=== PATIENT | male | born 1950 | race Caucasian/White ===

== ENCOUNTER 2016-08-25 09:34 | Emergency (ER) | payer MEDICARE ==
[2016-08-25] MEDS ORDERED: NORMAL SALINE 1000 ML 1,000 ML IV ONE (10:00)
[2016-08-25 10:02] LABS: ABSOLUTE BASOPHILS # (AUTO) 0.1 10^3/uL (0.0-0.2); ABSOLUTE EOSINOPHILS # (AUTO) 0.1 10^3/uL (0.0-0.6); ABSOLUTE LYMPHOCYTES (AUTO) 1.4 10^3/uL (0.5-4.7); ABSOLUTE MONOCYTES (AUTO) 0.2 10^3/uL (0.1-1.4); ABSOLUTE NEUT (AUTO) 3.6 10^3/uL (1.7-8.2); BASOPHILS % (AUTO) 1.1 % (0-2); EOSINOPHILS % (AUTO) 1.9 % (0-6); HEMATOCRIT 44.1 % (37.9-51.0); HEMOGLOBIN 14.7 g/dL (13.5-17.0); MEAN CORPUSCULAR HGB CONC 33.3 g/dL (32.0-36.0); MEAN CORPUSCULAR VOLUME 93 fl (80-97); MONOCYTES % (AUTO) 4.3 % (3-13); RED BLOOD COUNT 4.74 10^6/uL (4.35-5.55); RED CELL DISTRIBUTION WIDTH 13.2 % (11.5-14.0); SEGMENTED NEUTROPHILS % (AUTO) 66.7 % (42-78); WHITE BLOOD COUNT 5.3 10^3/uL (4.0-10.5)
[2016-08-25 10:16] LABS: ALANINE AMINOTRANSFERASE 28 U/L (21-72); ALBUMIN 4.5 g/dL (3.5-5.0); ALKALINE PHOSPHATASE 58 U/L (38-126); ANION GAP 12 (5-19); ASPARTATE AMINO TRANSFERASE 23 U/L (17-59); BILIRUBIN,DIRECT 0.3 mg/dL (0.0-0.4); BILIRUBIN,TOTAL 0.7 mg/dL (0.2-1.3); BLOOD UREA NITROGEN 18 mg/dL (7-20); CALCIUM 9.4 mg/dL (8.4-10.2); CARBON DIOXIDE 25 mmol/L (22-30); CHLORIDE 104 mmol/L (98-107); CREATINE KINASE 121 U/L (55-170); CREATININE RESULT 1.14 mg/dL (0.52-1.25); GLUCOSE 105 mg/dL (75-110); POTASSIUM 4.2 mmol/L (3.6-5.0); SODIUM 140.5 mmol/L (137-145); TOTAL PROTEIN 7.5 g/dL (6.3-8.2)
--- NOTE | 2016-08-25 10:16 | ER Document Report ---
ED Syncope and Near Syncope - General Chief Complaint: Syncope Stated Complaint: SYNCOPE, FALL/ CHEST WALL PAIN Time Seen by Provider: 08/25/16 09:55 Mode of Arrival: Medic Information source: Patient, Relative, Emergency Med Personnel TRAVEL OUTSIDE OF THE [place] IN LAST 30 DAYS: No - HPI Patient complains to provider of: Fainting Episode witnessed (by whom): Yes - [employer] Single episoded occurred: 0800 Symptoms prior to episode: Other - NUMBNESS, GENERALIZED Position/Activity at time of episode: Standing Quality of pain: No pain Context: Collapsed Duration of LOC (min): 0.3 Injury location: Chest - R. LAT. Current symptoms: None/feels back to normal Similar symptoms previously: Yes - 1 WEEK AGO Recently seen / treated by doctor: No - Related Data Allergies/Adverse Reactions: sulfamethoxazole [From Septra] Allergy (Severe, Verified 06/30/10 16:14) trimethoprim [From Septra] Allergy (Severe, Verified 06/30/10 16:14) Past Medical History - General Information source: Patient - Social History Smoking Status: Current Every Day Smoker Cigarette use (# per day): Yes Chew tobacco use (# tins/day): No Frequency of alcohol use: Occasional Drug Abuse: None Lives with: Family Family History: Reviewed & Not Pertinent Patient has suicidal ideation: No Patient has homicidal ideation: No - Past Medical History Cardiac Medical History: Reports: Hx Hypertension - FORMERLY, ON NO MEDS NOW Pulmonary Medical History: Reports: None EENT Medical History: Reports: None Neurological Medical History: Reports: Other - NEG. PARKINSON'S DIS.. Denies: Hx Cerebrovascular Accident, Hx Seizures Endocrine Medical History: Reports: None Renal/ Medical History: Reports: None Malignancy Medical History: Reports None GI Medical History: Reports: None Musculoskeltal Medical History: Reports None Psychiatric Medical History: Reports: Hx Dementia Review of Systems - Review of Systems Constitutional: Weakness EENT: No symptoms reported Cardiovascular: Syncope, Lightheaded. denies: Chest pain, Palpitations, Dyspnea Respiratory: See HPI Gastrointestinal: No symptoms reported Genitourinary: No symptoms reported Musculoskeletal: No symptoms reported Skin: No symptoms reported Neurological/Psychological: See HPI Physical Exam - Vital signs Vitals: Resp 10 L 08/25/16 09:40 - General General appearance: Appears well, Alert In distress: None - HEENT Head: Normocephalic Eyes: Normal Conjunctiva: Normal Ears: Normal Nasal: Normal Mouth/Lips: Normal Mucous membranes: Normal Pharynx: Normal Neck: Normal - Respiratory Respiratory status: No respiratory distress Chest status: Tender - R. LATERAL Breath sounds: Normal Chest palpation: Normal - Cardiovascular Rhythm: Regular Heart sounds: Normal auscultation Murmur: No - Abdominal Inspection: Normal Distension: No distension - Extremities General upper extremity: Normal inspection General lower extremity: Normal inspection - Neurological Neuro grossly intact: Yes Cognition: Normal Orientation: AAOx4 - Psychological Associated symptoms: Normal affect, Normal mood - Skin Skin Temperature: Warm Skin Moisture: Dry Skin Color: Normal Skin Turgor: Elastic Course - Vital Signs Vital signs: Temp Pulse Resp BP Pulse Ox 97.9 F 61 18 121/68 95 08/25/16 10:01 08/25/16 12:10 08/25/16 10:01 08/25/16 12:10 08/25/16 10:01 - Laboratory Result Diagrams: 08/25/16 09:50 08/25/16 09:50 Laboratory results interpreted by me: 08/25/16 08/25/16 08/25/16 09:50 09:50 10:00 Plt Count 131 L Urine Ketones TRACE H Salicylates < 1.0 L - Diagnostic Test Radiology reviewed: Image reviewed, Reports reviewed - EKG Interpretation by Me EKG shows normal: Sinus rhythm, [place], Intervals, QRS Complexes. abnormal: ST-T Waves - BORDERLINE T ABNLS. Rate: Normal Rhythm: NSR Discharge - Discharge Clinical Impression: Syncope and collapse, Rib injury Condition: Stable Disposition: HOME, SELF-CARE Instructions: Syncopal Episode ([facility]), Rib Injuries and Fractures ([facility]), Oral Narcotic Medication ([facility]) Additional Instructions: REST, DRINK PLENTY OF FLUIDS. YOU MAY TAKE NORCO FOR PAIN IF NEEDED, OR IBUPROFEN OR NAPROXEN FOR LESS SEVERE PAIN. FOLLOW UP WITH YOUR PRIMARY CARE PROVIDER EARLY NEXT WEEK. RETURN TO E.R. IF PROBLEMS, ANY TIME. Prescriptions: Hydrocodone/Acetaminophen [[place] 5-325 mg Tablet] 1 tab PO Q4HP PRN #30 tablet PRN Reason: For Pain
[2016-08-25 10:20] LABS: ALCOHOL < 10 mg/dL (NONE DETECTED)
[2016-08-25 10:27] LABS: CREATINE KINASE MB 1.04 ng/mL (<4.55)
[2016-08-25 10:33] LABS: TROPONIN I < 0.012 ng/mL
[2016-08-25 10:41] LABS: APPEARANCE,URINE SLIGHTLY-CLOUDY; BILIRUBIN,URINE NEGATIVE (NEGATIVE); GLUCOSE, URINE NEGATIVE (NEGATIVE); KETONES,URINE TRACE mg/dL (NEGATIVE); LEUKOCYTE ESTERASE,URINE NEGATIVE (NEGATIVE); NITRITE,URINE NEGATIVE (NEGATIVE); PROTEIN,URINE NEGATIVE (NEGATIVE); URINE SPECIFIC GRAVITY 1.018; UROBILINOGEN,URINE NEGATIVE mg/dL (<2.0)
--- NOTE | 2016-08-25 10:45 | EKG REPORT ---
SEVERITY:- BORDERLINE ECG - SINUS RHYTHM BORDERLINE T WAVE ABNORMALITIES : Confirmed by: Nuria Garcia MD 25-Aug-2016 10:45:16
--- NOTE | 2016-08-25 10:48 | RADIOLOGY REPORT (SQ) ---
EXAM DESCRIPTION: RIBS RIGHT W/PA CHEST COMPLETED DATE/TIME: 08/25/2016 10:37 am REASON FOR STUDY: FALL, TENDER R. LAT. CHEST COMPARISON: None. TECHNIQUE: Frontal view of the chest and additional views of the right ribs acquired. NUMBER OF VIEWS: Three views LIMITATIONS: None. FINDINGS: FRONTAL CXR: No pneumothorax. No pleural effusion. No atelectasis or infiltrates. RIBS: No displaced rib fractures. No lytic or blastic bony lesions. OTHER: No other significant finding. IMPRESSION: NO PNEUMOTHORAX. NO DISPLACED RIB FRACTURES. COMMENT: SITE OF TRAUMA/COMPLAINT MARKED/STAMP COMPLETED: Yes TECHNICAL DOCUMENTATION: JOB ID: [id number] [employer]- All Rights Reserved
[2016-08-25 10:52] LABS: URINE BARBITURATES SCREEN NEGATIVE; URINE METHADONE SCREEN NEGATIVE; URINE OPIATES LOW NEGATIVE; URINE PHENCYCLIDINE SCREEN NEGATIVE
[2016-08-25] MEDS ORDERED: HYDROMORPHONE HCL INJ/PF 2 MG/ML AMPULE IM ONE (12:17)
[2016-08-25] MEDS ORDERED: ONDANSETRON 4 MG TAB.RAPDIS PO ONE (12:17)
[2016-08-25 14:10] VITALS: BP 126/67
== END 2016-08-25 13:22 | disposition home or self-care (01) ==
LOC: ER 09:34
DX: R55 Syncope and collapse (principal); S29.9XXA Unspecified injury of thorax, initial encounter; W19.XXXA Unspecified fall, initial encounter; Y93.89 Activity, other specified; F17.210 Nicotine dependence, cigarettes, uncomplicated; Z88.1 Allergy status to other antibiotic agents
CPT/HCPCS: 93005; 99284; 96372; 96360; 36415; 82553; 80307 ×3; 82550; 85025; 80053; 81001; 84484; 71101; 93010; A9270; J1170; J7030; S0119

== ENCOUNTER 2018-12-25 13:29 | Emergency (ER) | payer MEDICARE ==
[2018-12-25] MEDS ORDERED: ACETAMINOPHEN 325 MG TABLET PO ONE (14:01)
[2018-12-25] MEDS ORDERED: IBUPROFEN 600 MG TABLET PO ONE (14:01)
--- NOTE | 2018-12-25 14:03 | ER Document Report ---
HPI - HPI Pain Level: 5 Context: Patient is a 68-year-old male presents to the emergency department with a chief complaint of left knee pain. Yesterday he was walking up steps and his left knee gave out on him. He denies hitting his knee or falling to the ground. Since then, he states that he has a limp and every time he puts pressure on it hurts. He has not taken any medications for the pain. Patient has a history of orthoscopic surgery on that knee. - CONSTITUTIONAL Constitutional: DENIES: Fever, Chills - EENT EENT: DENIES: Sore Throat - NEURO Neurology: DENIES: Headache, Weakness - CARDIOVASCULAR Cardiovascular: DENIES: Chest pain - RESPIRATORY Respiratory: DENIES: Trouble Breathing - GASTROINTESTINAL Gastrointestinal: DENIES: Nausea, Patient vomiting - REPRODUCTIVE Reproductive: DENIES: : - MUSCULOSKELETAL Musculoskeletal: REPORTS: Extremity pain - left knee, Swelling - left knee. DENIES: Back Pain - DERM Skin Color: Normal Skin Problems: None <LAURELCHRISSY M - Last Filed: 12/25/18 14:01> <VALERIA VARGHESE - Last Filed: 12/25/18 15:54> - HPI Time Seen by Provider: 12/25/18 13:48 Past Medical History - Social History Smoking Status: Current Every Day Smoker Chew tobacco use (# tins/day): No Frequency of alcohol use: None Drug Abuse: None Family History: Reviewed & Not Pertinent Patient has suicidal ideation: No Patient has homicidal ideation: No - Past Medical History Cardiac Medical History: Reports: Hx Hypertension - FORMERLY, ON NO MEDS NOW Neurological Medical History: Denies: Hx Cerebrovascular Accident, Hx Seizures Psychiatric Medical History: Reports: Hx Dementia <LAURELCHRISSY M - Last Filed: 12/25/18 14:01> Vertical Provider Document - INFECTION CONTROL TRAVEL OUTSIDE OF THE [place] IN LAST 30 DAYS: No <LAURELCHRISSY Julia - Last Filed: 12/25/18 14:01> - CONSTITUTIONAL Notes: PHYSICAL EXAMINATION: GENERAL: Well-appearing, well-nourished and in no acute distress. HEAD: Atraumatic, normocephalic. EYES: Pupils equal round extraocular movements intact, conjunctiva are normal. ENT: Nares patent NECK: Normal range of motion LUNGS: No respiratory distress Musculoskeletal: Mildly limited range of motion to left knee, no crepitus or deformity on palpation, joint effusion on palpation, strong popliteal pulse, strong dorsalis pedis pulse. NEUROLOGICAL: Normal speech, normal gait. PSYCH: Normal mood, normal affect. SKIN: Warm, Dry, normal turgor, no rashes or lesions noted. <VALERIA VARGHESE - Last Filed: 12/25/18 15:54> Course - Re-evaluation Re-evalutation: Knee X-Ray 12/25/18 14:00 IMPRESSION: Joint effusion without an associated fracture or dislocation. The findings could be secondary to the tricompartmental osteoarthrosis. Patient placed in Ronaldo wrap and given orthopedic follow-up. I did prescribe him a short course of [place] for pain relief. Patient also encouraged to take ibupro fen as outlined by discharge instructions. Patient verbalizes understanding and agreement this plan. The patient's emergency department workup and current diagnosis were explained to the patient and or family. Follow-up instructions were provided. Medications if prescribed were discussed. Instructions for when to return to the emergency department including specific worrisome symptoms were discussed with the patient and/or family. - Vital Signs Vital signs: Temp Pulse Resp BP Pulse Ox 97.8 F 60 16 141/64 H 100 12/25/18 14:45 12/25/18 14:45 12/25/18 14:45 12/25/18 14:45 12/25/18 14:45 <VALERIA VARGHESE - Last Filed: 12/25/18 15:54> Discharge <CHRISSY BARRAGAN - Last Filed: 12/25/18 14:01> <VALERIA VARGHESE - Last Filed: 12/25/18 15:54> - Discharge Clinical Impression: Knee effusion, left Condition: Stable Disposition: HOME, SELF-CARE Additional Instructions: Knee Effusion You have a fluid collection in the knee joint, called an effusion. This fluid build up can occur from irritation of the synovial membrane lining the knee joint or from a more serious injury to the knee. Irritation of the membrane can occur from excessive, repetitive knee activitiy, like kneeling or squatting for extended periods or even just excessive walking, jogging, or skiing. Effusions also can occur with infections in the joint and with some ar thritic conditions, especially gout. Fluid collections in these situations are usually yellow in color and either clear or cloudy in appearance. Significant injury to the knee can result in fluid collection which is partly or entirely blood and this condition is known as a hemarthrosis of the knee joint. If the fluid collection is not too large and/or painful, it can be managed conservatively with rest, ice packs, and anti-inflammatory and pain medications as needed. If the fluid collection is large and very painful, the knee joint can be drained (aspirated) by a relatively minor procedure of inserting a needle in the joint and removing some or all of the fluid present. If your knee was aspirated, you should rest it as much as possible for a few days, keep a pressure dressing around the knee and apply ice packs for at least 48 - 72 hours. If there are signs of developing infection such as heat and redness of the knee, fever, etc. you should return immediately for a recheck. Please take ibuprofen 600 mg every 6 hours. Please only use the narcotic pain medication for severe pain only. Please follow-up with orthopedics if your pain has not improved over the next 3 to 5 days. 2 referrals have been provided below for you. Prescriptions: Hydrocodone Bit/Acetaminophen [Hydrocodon-Acetaminophen 5-325] 1 each PO Q4H #12 tablet Referrals: DUSTIN NOBLE MD [NO LOCAL MD] - Follow up as needed NAVJOT KRUSE MD [ACTIVE STAFF] - Follow up as needed
--- NOTE | 2018-12-25 14:29 | RADIOLOGY REPORT (SQ) ---
EXAM DESCRIPTION: KNEE LEFT 4 VIEW COMPLETED DATE/TIME: 12/25/2018 2:17 pm REASON FOR STUDY: left knee pain COMPARISON: None. NUMBER OF VIEWS: Four views. TECHNIQUE: AP, lateral, and both oblique radiographic images acquired of the left knee. LIMITATIONS: None. FINDINGS: MINERALIZATION: Normal. BONES: No acute fracture or dislocation. No osseous lesion. JOINT: There is tricompartmental osteoarthrosis with probable narrowing of the medial femoroacetabula r compartment joint space. SOFT TISSUES: The quadriceps and patellar tendon silhouettes are intact. OTHER: No other finding. IMPRESSION: Joint effusion without an associated fracture or dislocation. The findings could be sec ondary to the tricompartmental osteoarthrosis. TECHNICAL DOCUMENTATION: JOB ID: [id number] [employer]- All Rights Reserved Reading location - IP/workstation name: [email or web address]
[2018-12-25 14:47] VITALS: BP 141/64
== END 2018-12-25 15:33 | disposition home or self-care (01) ==
LOC: ER 13:29
DX: M25.462 Effusion, left knee (principal); M25.562 Pain in left knee
CPT/HCPCS: 99283; 73564; A9270 ×2

== ENCOUNTER → 2019-02-08 | Outpatient (CLI) | payer MEDICARE ==
--- NOTE | 2019-02-10 12:27 | RADIOLOGY REPORT (SQ) ---
EXAM DESCRIPTION: MRI LT LOWER JOINT WITHOUT COMPLETED DATE/TIME: 02/08/2019 5:10 pm REASON FOR STUDY: M25.462 EFFUSION, LEFT KNEE M25.462 EFFUSION, LEFT KNEE COMPARISON: None. TECHNIQUE: Leftknee images acquired and stored on PACS. Multiplanar images include fat sensitive se quences as T1, water sensitive sequences as FST2 or STIR, cartilage sensitive sequences as FSPD, and gradient echo sequences. LIMITATIONS: Up to moderately limiting motion artifact on some sequences. FINDINGS: JOINT AND BURSAE: Sizable joint effusion. BONE CORTEX AND MARROW: Marrow edema throughout the medial femoral condyle and medial tibial plateau particularly. ACL: Deficient. PCL: Thickening and hyperintensity, particularly proximal-mid. Possible evie cystic changes proxima lly. MCL: Intact. LCL: Intact. MEDIAL MENISCUS: Truncated posterior horn and body, presumably largely postoperative. Mild irregular tearing along the articular surface is suggested. LATERAL MENISCUS: Slightly extruded appearance but no discrete tear suggested allowing for poor evalu ation of posterior meniscus root. MEDIAL COMPARTMENT: Irregular chondral loss, much of which looks like full-thickness denuded cartilag e. LATERAL COMPARTMENT: Chondral thinning particularly in the femoral condyle. Some of this looks full- thickness to near full-thickness. Additional mild fissuring on the tibial side of the joint. PATELLA: Normal location. Mild thinning of cartilage with apical fibrillation. EXTENSOR MECHANISM: Intact. Quadriceps and patella tendons normal. SOFT TISSUES: Small No's cyst. Grossly appropriate vascular flow voids. OTHER: No other significant finding. IMPRESSION: 1. Deficient ACL. 2. Abnormal PCL. Likely degenerative although partial tear is in the differential. Possible evie c ystic changes proximally. 3. Postoperative changes medial meniscus with probable superimposed tear. 4. Mildly extruded lateral meniscus. 5. Extensively denuded hyaline cartilage throughout the medial compartment. Lesser changes in the la teral and patellofemoral compartments. 6. Joint effusion and marrow edema as above. TECHNICAL DOCUMENTATION: JOB ID: [id number]- All Rights Reserved Reading location - IP/workstation name: [email or web address]
== END ==
LOC: RAD 16:28
PROVIDERS: ATTEND Orthopaedic Surgery
DX: M25.462 Effusion, left knee (principal); M71.22 Synovial cyst of popliteal space [Baker], left knee

== ENCOUNTER → 2019-03-07 | Outpatient (CLI) | payer MEDICARE ==
[2019-03-07 14:17] LABS: ABSOLUTE EOSINOPHILS # (AUTO) 0.1 10^3/uL (0.0-0.6); ABSOLUTE LYMPHOCYTES (AUTO) 1.4 10^3/uL (0.5-4.7); ABSOLUTE MONOCYTES (AUTO) 0.2 10^3/uL (0.1-1.4); ABSOLUTE NEUT (AUTO) 3.2 10^3/uL (1.7-8.2); BASOPHILS % (AUTO) 0.9 % (0-2); EOSINOPHILS % (AUTO) 2.2 % (0-6); HEMATOCRIT 41.2 % (37.9-51.0); HEMOGLOBIN 14.1 g/dL (13.5-17.0); LYMPHOCYTES % (AUTO) 27.3 % (13-45); MEAN CORPUSCULAR HEMOGLOBIN 31.1 pg (27.0-33.4); MEAN CORPUSCULAR HGB CONC 34.2 g/dL (32.0-36.0); MEAN CORPUSCULAR VOLUME 91 fl (80-97); MONOCYTES % (AUTO) 4.7 % (3-13); PLATELET COUNT 124 10^3/uL (150-450); RED BLOOD COUNT 4.53 10^6/uL (4.35-5.55); RED CELL DISTRIBUTION WIDTH 13.8 % (11.5-14.0); SEGMENTED NEUTROPHILS % (AUTO) 64.9 % (42-78); TOTAL CELLS COUNTED % (AUTO) 100 %
[2019-03-07 14:24] LABS: APPEARANCE,URINE CLEAR; BILIRUBIN,URINE NEGATIVE (NEGATIVE); COLOR,URINE YELLOW; GLUCOSE, URINE NEGATIVE (NEGATIVE); KETONES,URINE NEGATIVE (NEGATIVE); LEUKOCYTE ESTERASE,URINE NEGATIVE (NEGATIVE); NITRITE,URINE NEGATIVE (NEGATIVE); PROTEIN,URINE NEGATIVE (NEGATIVE); URINE SPECIFIC GRAVITY 1.013; UROBILINOGEN,URINE NEGATIVE mg/dL (<2.0)
[2019-03-07 14:38] LABS: ANION GAP 9 (5-19); BLOOD UREA NITROGEN 12 mg/dL (7-20); CALCIUM 9.5 mg/dL (8.4-10.2); CARBON DIOXIDE 30 mmol/L (22-30); CHLORIDE 105 mmol/L (98-107); GLUCOSE 92 mg/dL (75-110); POTASSIUM 4.7 mmol/L (3.6-5.0)
--- NOTE | 2019-03-07 14:49 | EKG REPORT ---
SEVERITY:- BORDERLINE ECG - SINUS RHYTHM BORDERLINE T WAVE ABNORMALITIES : Confirmed by: Salazar Sloan MD 07-Mar-2019 14:48:24
--- NOTE | 2019-03-07 15:39 | RADIOLOGY REPORT (SQ) ---
EXAM DESCRIPTION: CHEST PA/LATERAL COMPLETED DATE/TIME: 03/07/2019 2:51 pm REASON FOR STUDY: PRE-OP COMPARISON: None. EXAM PARAMETERS: NUMBER OF VIEWS: two views TECHNIQUE: Digital Frontal and Lateral radiographic views of the chest acquired. RADIATION DOSE: NA LIMITATIONS: none FINDINGS: LUNGS AND PLEURA: No opacities, masses or pneumothorax. No pleural effusion. MEDIASTINUM AND HILAR STRUCTURES: No masses or contour abnormalities. HEART AND VASCULAR STRUCTURES: Heart normal size. No evidence for failure. BONES: No acute findings. HARDWARE: None in the chest. OTHER: No other significant finding. IMPRESSION: NO SIGNIFICANT RADIOGRAPHIC FINDING IN THE CHEST. TECHNICAL DOCUMENTATION: JOB ID: [id number] [employer]- All Rights Reserved Reading location - IP/workstation name: [email or web address]
== END ==
LOC: OD 13:31
PROVIDERS: ATTEND Orthopaedic Surgery
DX: Z01.810 Encounter for preprocedural cardiovascular examination (principal); Z01.811 Encounter for preprocedural respiratory examination; Z01.812 Encounter for preprocedural laboratory examination; M17.12 Unilateral primary osteoarthritis, left knee
CPT/HCPCS: 36415; 71046; 80048; 81001; 85025; 93005; 93010

== ENCOUNTER 2019-03-25 06:46 | Day surgery (SDC) | payer MEDICARE ==
[~2019-03-25 06:46] MED LIST: BUPIVACAINE INJ/PF LIPOSOME/PF 266 MG/20 ML SDV INJ PRN; CEFAZOLIN INJ 1 GM VIAL IV PRN; DEXAMETHASONE SOD PHOSPHATE INJ 4 MG/1 ML VIAL ONE; FENTANYL CITRATE INJ/PF 100 MCG/2 ML AMPUL ONE; IBUPROFEN 800 MG in NORMAL SALINE 250 ML IV PRN; LACTATED RINGERS 1000 ML IV PRN; MIDAZOLAM 2 MG/2 ML INJ ONE; ONDANSETRON HCL INJ/PF 4 MG/2 ML SDV ONE; OXYCODONE HCL SR 10 MG TABLET PO PRN; PANTOPRAZOLE SODIUM 20 MG TABLET.DR PO PRN; PROPOFOL INJ 200 MG/20 ML VIAL IV ONE; VANCOMYCIN HCL 1,000 MG in DEXTROSE 5%-WATER 250 ML IV PRN
[2019-03-25] MEDS ORDERED: OXYCODONE HCL SR 10 MG TABLET PO ONE (07:01)
[2019-03-25] MEDS ORDERED: PANTOPRAZOLE SODIUM 20 MG TABLET.DR PO ONE (07:01)
[2019-03-25] MEDS ORDERED: CEFAZOLIN INJ 1 GM VIAL ONE (07:02)
[2019-03-25] MEDS ORDERED: TRANEXAMIC ACID INJ/PF 1,000 MG/10 ML SDV ONE ×2 (07:03→11:39)
[2019-03-25] MEDS ORDERED: BUPIVACAINE INJ/PF LIPOSOME/PF 266 MG/20 ML SDV ONE (09:06)
[2019-03-25] MEDS ORDERED: PROPOFOL INJ 200 MG/20 ML VIAL IV ONE (09:19)
[2019-03-25] MEDS ORDERED: BUPIVACAINE INJ/PF LIPOSOME/PF 266 MG/20 ML SDV INJ ONE (10:08)
[2019-03-25] MEDS ORDERED: DIPHENHYDRAMINE HCL 50 MG/ML VIAL IV PRN ×2 (10:27→10:37)
[2019-03-25] MEDS ORDERED: MORPHINE SULFATE 10 MG/ML INJ IV PRN (10:27)
[2019-03-25] MEDS ORDERED: PROMETHAZINE HCL INJ 25 MG/1 ML VIAL IV PRN ×2 (10:27)
[2019-03-25] MEDS ORDERED: ONDANSETRON HCL INJ/PF 4 MG/2 ML SDV IV PRN ×2 (10:27→10:37)
[2019-03-25] MEDS ORDERED: MEPERIDINE HCL/PF INJ 25 MG/1 ML DISP.SYRIN IV PRN (10:27)
[2019-03-25] MEDS ORDERED: FENTANYL CITRATE INJ/PF 100 MCG/2 ML AMPUL IV PRN ×3 (10:27)
--- NOTE | 2019-03-25 10:36 | Operative Report ---
Operative Report DATE OF SURGERY: 03/25/19 PREOPERATIVE DIAGNOSIS: Left knee arthritis OPERATION: Left knee arthroplasty SURGEON: NAVJOT KRUSE ANESTHESIA: Spinal TISSUE REMOVED OR ALTERED: Bone to pathology ESTIMATED BLOOD LOSS: 75 PROCEDURE: Implants used: Femur: Precious triathlon size 7 CR uncemented femur Tibia: 6 uncemented tibia Tibial liner: 9 mm CS insert Patella: 38 mm uncemented patella Procedure with the patient supine on the operating table the left the limb is prepped and draped in a sterile fashion. The limb was elevated for exsanguination and the tourniquet inflated to 280 torr. A standard midline median parapatellar approach the knee is taken. Access is gained to the femoral canal through the intercondylar notch. Intramedullary alignment instrumentation used to resect 10 mm of distal femur in 5 of valgus. Sizing guide indicated a size 7 femur. Appropriate cutting jig is then used to fashion anterior posterior and chamfer cuts. A trial reduction femurs performed and this is judged to be adequate. Attention was next turned to the tibia. Using an extra medullary alignment system 9 millimeters was resected off the lateral tibial plateau. This is sized to a size 6 tibia. A trial reduction was now performed with a 7 femur and a 6 tibia using a 9 millimeters spacer. It is full extension and central patellofemoral tracking. The articular surface the patella was next resected using an oscillating saw. All trial implants were removed. The above implants are impacted into position. The tourniquet was deflated hemostasis obtained the wound is then closed in layers using interrupted Vicryl followed by dino. A sterile compressive dressing was applied and the patient returned to recovery room in satisfactory condition.
[2019-03-25] MEDS ORDERED: ZOLPIDEM TARTRATE 5 MG TABLET PO PRN (10:37)
[2019-03-25] MEDS ORDERED: ONDANSETRON 4 MG TAB.RAPDIS PO PRN (10:37)
[2019-03-25] MEDS ORDERED: ACETAMINOPHEN 325 MG TABLET PO PRN (10:37)
[2019-03-25] MEDS ORDERED: RINGERS SOLUTION,LACTATED 1,000 ML IV PRN (10:37)
[2019-03-25] MEDS ORDERED: MAG HYDROX/AL HYDROX/SIMETH SUSP 30 ML UDCUP PO PRN (10:37)
--- NOTE | 2019-03-25 11:55 | RADIOLOGY REPORT (SQ) ---
EXAM DESCRIPTION: KNEE LEFT 2 VIEWS COMPLETED DATE/TIME: 03/25/2019 10:29 am REASON FOR STUDY: Post OP -Long Cassette in PACU M17.12 UNILATERAL PRIMARY OSTEOARTHRITIS, LEFT KNE E COMPARISON: None. NUMBER OF VIEWS: Three views TECHNIQUE: AP, cross-table lateral and oblique radiographic images acquired of the left knee. LIMITATIONS: None. FINDINGS: MINERALIZATION: Normal. BONES: Left knee arthroplasty with components in good alignment. No fracture or cortical disruption. JOINT: Postoperative changes with small joint effusion and subcutaneous gas. SOFT TISSUES: No soft tissue swelling. No radio-opaque foreign body. OTHER: No other significant finding. IMPRESSION: Status post left knee arthroplasty. No acute abnormality. TECHNICAL DOCUMENTATION: JOB ID: [id number] [employer]- All Rights Reserved Reading location - IP/workstation name: [email or web address]
[2019-03-25] MEDS ORDERED: TRANEXAMIC ACID INJ/PF 1,000 MG/10 ML SDV IV ONE ×2 (12:30→15:00)
[2019-03-25] MEDS: OXYCODONE HCL IR 5 MG TABLET PO PRN ×2 (12:41→18:58)
[2019-03-25] MEDS ORDERED: (PENDING PHARMACY ID) (Ropinirole Hcl [Requip] 1 MG) PO SCH (14:00)
[2019-03-25] MEDS: IBUPROFEN 800 MG in NORMAL SALINE 250 ML IV SCH ×2 (14:43→21:51)
[2019-03-25] MEDS: GABAPENTIN 400 MG CAPSULE PO SCH ×2 (14:43→17:15)
[2019-03-25] MEDS: DULOXETINE HCL 30 MG CAPSULE.DR PO SCH (17:15)
[2019-03-25] MEDS: SENNOSIDES/DOCUSATE 8.6-50 MG 1 EACH TABLET PO SCH (17:15)
[2019-03-25] MEDS ORDERED: ASPIRIN 81 MG TABLET, ENT COATED PO SCH (18:00)
[2019-03-25] MEDS: OXYCODONE HCL SR 10 MG TABLET PO SCH (21:50)
[2019-03-25] MEDS: ROPINIROLE HCL 1 MG TABLET PO SCH (21:50)
[2019-03-25] MEDS ORDERED: VANCOMYCIN HCL 1,000 MG in DEXTROSE 5%-WATER 250 ML IV ONE (22:37)
[2019-03-26] MEDS: ROPINIROLE HCL 1 MG TABLET PO SCH (05:09)
[2019-03-26] MEDS: IBUPROFEN 800 MG in NORMAL SALINE 250 ML IV SCH (05:09)
[2019-03-26] MEDS: OXYCODONE HCL IR 5 MG TABLET PO PRN (05:10)
[2019-03-26 05:32] LABS: MEAN CORPUSCULAR HEMOGLOBIN 31.5 pg (27.0-33.4); MEAN CORPUSCULAR HGB CONC 34.5 g/dL (32.0-36.0); MEAN CORPUSCULAR VOLUME 91 fl (80-97); PLATELET COUNT 113 10^3/uL (150-450); RED CELL DISTRIBUTION WIDTH 13.7 % (11.5-14.0); WHITE BLOOD COUNT 8.3 10^3/uL (4.0-10.5)
[2019-03-26] MEDS ORDERED: PANTOPRAZOLE SODIUM 40 MG TABLET.DR PO SCH (06:00)
[2019-03-26 06:03] LABS: ANION GAP 5 (5-19); BLOOD UREA NITROGEN 15 mg/dL (7-20); CALCIUM 8.6 mg/dL (8.4-10.2); CARBON DIOXIDE 28 mmol/L (22-30); CHLORIDE 105 mmol/L (98-107); GLUCOSE 142 mg/dL (75-110); POTASSIUM 3.9 mmol/L (3.6-5.0)
--- NOTE | 2019-03-26 06:55 | PDOC DISCHARGE SUMMARY ---
Impression - Admit/DC Date/PCP Admission Date/Primary Care Provider: 03/25/19 06:46 JACK HARRELL PA-C Discharge Date: 03/26/19 - Additional Information Resuscitation Status: Full Code Discharge Diet: Regular Discharge Activity: Balance Activity w/Rest, No tub bath Referrals: NAVJOT KRUSE MD [ACTIVE STAFF] - Home Medications: Albuterol Sulfate [Ventolin Hfa 8 gm Mdi (1 Mdi/ER Disp)] 2 puff IN Q4HP PRN 03/13/19 Cyclobenzaprine HCl [Flexeril 10 mg Tablet] 10 mg PO TID 03/13/19 Duloxetine HCl [Cymbalta 30 mg Capsule.dr] 30 mg PO BID 03/13/19 Gabapentin [Neurontin 400 mg Capsule] 400 mg PO TID 03/13/19 Quetiapine Fumarate [Seroquel 100 mg Tablet] 100 mg PO QHS 03/13/19 Ropinirole HCl [Requip] 1 mg PO BID 03/13/19 Sertraline HCl [Zoloft] 25 mg PO DAILY 03/13/19 History of Present Illiness History of Present Illness: LARY MCCARTHY JR is a 69 year old male Patient is a 69-year-old white male with progressive left knee pain and functional disability second osteoarthritis. Patient is admitted for elective left knee arthroplasty. Hospital Course Hospital Course: Patient is admitted through the operating room where he undergoes uncomplicated left knee arthroplasty. Is returned to floor in satisfactory condition. I nitially there is some drainage from the wound leading to reinforcement of the dressings and an additional dose of tranexamic acid. The patient subsequently does excellent with physical therapy ambulating and weightbearing as tolerated basis. The compressive dressing is removed on the first postoperative morning. The underlying OpSite dressing was changed. The wound is well approximated with dino is clean dry and intact with no further drainage. There is no erythema. There is minimal pedal edema. Distal neurovascular examination is intact. Physical Exam Vital Signs: Temp Pulse Resp BP Pulse Ox 36.7 C 74 16 105/71 97 03/26/19 00:00 03/26/19 00:00 03/26/19 00:00 03/26/19 00:00 03/26/19 00:00 Intake & Output 03/24/19 03/25/19 03/26/19 06:59 06:59 06:59 Intake Total 0 6984 Output Total 2525 Balance 0 4459 Weight 91.7 kg General appearance: PRESENT: no acute distress Head exam: PRESENT: normocephalic Respiratory exam: PRESENT: unlabored Cardiovascular exam: PRESENT: RRR Pulses: PRESENT: +1 pedal pulses bilateral Vascular exam: PRESENT: normal capillary refill GI/Abdominal exam: PRESENT: soft Rectal exam: PRESENT: deferred Musculoskeletal exam: PRESENT: other - Left lower extremity dressing clean dry and intact Neurological exam: PRESENT: alert, awake, oriented to person, oriented to place, oriented to time, oriented to situation. ABSENT: motor sensory deficit Psychiatric exam: PRESENT: appropriate affect, normal mood. ABSENT: homicidal ideation, suicidal ideation Skin exam: PRESENT: dry, intact, warm. ABSENT: cyanosis, rash Results Laboratory Results: WBC 8.3 10^3/uL (4.0-10.5) 03/26/19 05:07 RBC 3.50 10^6/uL (4.35-5.55) L 03/26/19 05:07 Hgb 11.0 g/dL (13.5-17.0) L 03/26/19 05:07 Hct 32.0 % (37.9-51.0) L 03/26/19 05:07 MCV 91 fl (80-97) 03/26/19 05:07 MCH 31.5 pg (27.0-33.4) 03/26/19 05:07 MCHC 34.5 g/dL (32.0-36.0) 03/26/19 05:07 RDW 13.7 % (11.5-14.0) 03/26/19 05:07 Plt Count 113 10^3/uL (150-450) L 03/26/19 05:07 Sodium 138.0 mmol/L (137-145) 03/26/19 05:07 Potassium 3.9 mmol/L (3.6-5.0) 03/26/19 05:07 Chloride 105 mmol/L (98-107) 03/26/19 05:07 Carbon Dioxide 28 mmol/L (22-30) 03/26/19 05:07 Anion Gap 5 (5-19) 03/26/19 05:07 BUN 15 mg/dL (7-20) 03/26/19 05:07 Creatinine 1.02 mg/dL (0.52-1.25) 03/26/19 05:07 Est GFR ( Amer) > 60 (>60) 03/26/19 05:07 Est GFR (MDRD) Non-Af > 60 (>60) 03/26/19 05:07 Glucose 142 mg/dL (75-110) H 03/26/19 05:07 Calcium 8.6 mg/dL (8.4-10.2) 03/26/19 05:07 Impressions: Knee X-Ray 03/25/19 10:39 IMPRESSION: Status post left knee arthroplasty. No acute abnormality. Plan Plan of Treatment: Patient discharged home on a weightbearing as tolerated basis with home health services and DME. Follow-up with Dr. Kruse and [facility] for surgery in 2 weeks for staple removal. Time Spent: Less than 30 Minutes Stroke Is this a Stroke Patient?: No Stroke Pt being discharged on Anti-thrombolytic therapy?: Yes Acute Heart Failure - Is this a Heart Failure Patient?: No
[2019-03-26] MEDS ORDERED: PRENATAL VITAMIN W DHA CAPSULE PO SCH (10:00)
[2019-03-26] MEDS ORDERED: SERTRALINE HCL 50 MG TABLET PO SCH (10:00)
[2019-03-26] MEDS ORDERED: (PENDING PHARMACY ID) (Sertraline Hcl [Zoloft] 25 MG) PO SCH (10:00)
[2019-03-26] MEDS: DULOXETINE HCL 30 MG CAPSULE.DR PO SCH (10:15)
[2019-03-26] MEDS: SENNOSIDES/DOCUSATE 8.6-50 MG 1 EACH TABLET PO SCH (10:15)
[2019-03-26] MEDS: OXYCODONE HCL SR 10 MG TABLET PO SCH (10:16)
[2019-03-26] MEDS: GABAPENTIN 400 MG CAPSULE PO SCH (10:16)
[2019-03-26 10:27] VITALS: BP 105/71
== END 2019-03-26 10:57 | disposition home or self-care (01) ==
LOC: INOR 06:46 → OROUT 06:46 → UNDOADMIN 06:46 → EDSTATUS 08:45 → INOR 12:05 → 4W 12:05 → UNDODISIN 03-26 10:57 → OROUT 03-26 10:57
PROVIDERS: ATTEND Orthopaedic Surgery
DX: M17.12 Unilateral primary osteoarthritis, left knee (principal); F32.9 Major depressive disorder, single episode, unspecified; F17.200 Nicotine dependence, unspecified, uncomplicated; Z88.3 Allergy status to other anti-infective agents
CPT/HCPCS: 36415; 85027; 80048; 88305 ×2; 88311; 73560; 94799; 97110; 97162; 97530 ×2; 97535 ×2; 97167; 01402; 27447; C1713; C1776 ×2; A9270 ×17; J2250; J0690; J1100; J3490 ×2; J2405; J7060; J7050; J7120; J2704; J3370; C9290; J1741; J3010

== ENCOUNTER 2019-08-18 15:11 | Emergency (ER) | payer MEDICARE ==
--- NOTE | 2019-08-18 15:45 | ER Document Report ---
HPI - HPI Patient complains to provider of: Vomiting Time Seen by Provider: 08/18/19 15:37 Onset: This morning Onset/Duration: Better Quality of pain: No pain Associated Symptoms: None, Vomiting - This is 69-year-old male presented to the emergency room today stating that he had one episode of nausea and vomiting this morning he has eaten since held it down no diarrhea no fever no cough no con gestion. - REPRODUCTIVE Reproductive: DENIES: : Past Medical History - General Information source: Patient - Social History Smoking Status: Never Smoker Cigarette use (# per day): No Chew tobacco use (# tins/day): No Smoking Education Provided: No Family History: Reviewed & Not Pertinent - Past Medical History Cardiac Medical History: Reports: Hx Hypertension - FORMERLY, ON NO MEDS NOW Denies: Hx Atrial Fibrillation, Hx Congestive Heart Failure, Hx Coronary Artery Disease, Hx Heart Attack, Hx Hypercholesterolemia, Hx Peripheral Vascular Disease, Hx Heart Murmur Pulmonary Medical History: Denies: Hx Asthma, Hx Bronchitis, Hx COPD, Hx Sleep Apnea Neurological Medical History: Denies: Hx Cerebrovascular Accident, Hx Seizures, Hx Parkinson's Disease Endocrine Medical History: Denies: Hx Hyperthyroidism, Hx Hypothyroidism Renal/ Medical History: Denies: Hx Kidney Stones GI Medical History: Denies: Hx Gastroesophageal Reflux Disease Musculoskeletal Medical History: Reports Hx Arthritis, Denies Hx Fibromyalgia, Denies Hx Multiple Sclerosis, Denies Hx Muscular Dystrophy Psychiatric Medical History: Reports: Hx Dementia Denies: Hx Bipolar Disorder, Hx Depression, Hx Post Traumatic Stress Disorder Traumatic Medical History: Denies: Hx Fractures Past Surgical History: Denies: Hx Appendectomy, Hx Bowel Surgery, Hx Cholecystectomy, Hx Coronary Artery Bypass Graft, Hx Gastric Bypass Surgery, Hx Herniorrhaphy, Hx Pacemaker, Hx Tonsillectomy Vertical Provider Document - CONSTITUTIONAL Agree With Documented VS: Yes - INFECTION CONTROL TRAVEL OUTSIDE OF THE [place] IN LAST 30 DAYS: No - HEENT HEENT: Atraumatic, Normocephalic, PERRLA - NECK Neck: Normal Inspection - RESPIRATORY Respiratory: Breath Sounds Normal, No Respiratory Distress - GI/ABDOMEN Gastrointestinal: Abdomen Soft, Abdomen Non-Tender, Normal Bowel Sounds. negative: Abdominal Rebound, No Organomegaly, Hepatomegaly - REPRODUCTIVE Male Genitalia: Normal Inspection - BACK Back: Normal Inspection - MUSCULOSKELETAL/EXTREMETIES Musculoskeletal/Extremeties: MAEW - NEURO Level of Consciousness: Awake, Alert Motor/Sensory: No Motor Deficit - DERM Integumentary: Warm, Dry Course - Re-evaluation Re-evalutation: 08/18/19 17:19 Patient had one episode of nausea vomiting this morning it is subsequently been cleared he is feeling well now no nausea no vomiting no chest pain no shortness of breath no exertional chest pain no exertional shortness of breath. - Vital Signs Vital signs: Temp Pulse Resp BP Pulse Ox 98.1 F 84 18 143/70 H 97 08/18/19 15:34 08/18/19 15:34 08/18/19 15:34 08/18/19 15:34 08/18/19 15:34 - Laboratory Result Diagrams: 08/18/19 15:58 Laboratory results interpreted by me: 08/18/19 17:19 Labs- All tests 24 hr 08/18/19 15:58 WBC 7.4 RBC 4.56 Hgb 14.0 Hct 41.7 MCV 91 MCH 30.7 MCHC 33.6 RDW 14.8 H Plt Count 157 Lymph % (Auto) 17.4 [place] % (Auto) 4.3 Eos % (Auto) 0.6 Baso % (Auto) 0.6 Absolute Neuts (auto) 5.7 Absolute Lymphs (auto) 1.3 Absolute Monos (auto) 0.3 Absolute Eos (auto) 0.0 Absolute Basos (auto) 0.0 Seg Neutrophils % 77.1 - Diagnostic Test Radiology results interpreted by me: 08/18/19 17:19 Acute Abdomen Series 08/18/19 15:37 IMPRESSION: NO RADIOGRAPHIC EVIDENCE FOR ACUTE ABDOMINAL DISEASE. Discharge - Discharge Clinical Impression: Nausea & vomiting Qualifiers: Vomiting type: unspecified Vomiting Intractability: unspecified Qualified Code(s): R11.2 - Nausea with vomiting, unspecified Disposition: HOME, SELF-CARE Additional Instructions: Nausea or Vomiting, Nonspecific Vomiting (or nausea without vomiting) can be caused by many different problems. Of course, it can mean that something's wrong with the stomach, such as "stomach flu," ulcers, or inflammation. But it can also be a symptom of a problem that has nothing to do with the stomach or intestines. Vomiting is common with severe headaches, earaches, and tonsillitis. We see it with pneumonia or heart attacks. Drugs can cause nausea. Many abdominal problems cause vomiting; for example, gallstones, kidney stones, pancreatitis, and intestinal obstruction (blocked bowels). In most cases, curing the vomiting depends on fixing the problem that caused it. For temporary relief, we may use an anti-nausea medicine. For home use, we can prescribe suppositories, chewable pills, pills that dissolve in the mouth, or liquid anti-nausea drugs. If the vomiting seems to be caused by a problem in the stomach, acid-suppressing drugs may be prescribed as well. It's important to avoid dehydration. Sip clear liquids. Take increasing amounts of fluid over the first 24 hours. Then start small amounts of bland foods (such as dry toast, applesauce, mashed potato). Avoid aspirin, tobacco, and alcohol. Gradually resume your usual diet. If the vomiting worsens, if the problem that's making you vomit worsens, or if there's evidence of bleeding in the stomach (such as black, tarry stool, bloody or black vomit, or lightheadedness), you should return immediately. Call your doctor if you aren't improved in 24 to 36 hours. Prescriptions: Ondansetron [Zofran Odt 4 mg Tablet] 1 - 2 tab PO Q4H PRN #15 tab.rapdis PRN Reason: For Nausea/Vomiting Referrals: JACK HARRELL PA-C [Primary Care Provider] - Follow up as needed
[2019-08-18 16:10] LABS: ABSOLUTE LYMPHOCYTES (AUTO) 1.3 10^3/uL (0.5-4.7); ABSOLUTE MONOCYTES (AUTO) 0.3 10^3/uL (0.1-1.4); ABSOLUTE NEUT (AUTO) 5.7 10^3/uL (1.7-8.2); BASOPHILS % (AUTO) 0.6 % (0-2); EOSINOPHILS % (AUTO) 0.6 % (0-6); HEMATOCRIT 41.7 % (37.9-51.0); LYMPHOCYTES % (AUTO) 17.4 % (13-45); MEAN CORPUSCULAR HEMOGLOBIN 30.7 pg (27.0-33.4); MEAN CORPUSCULAR HGB CONC 33.6 g/dL (32.0-36.0); MEAN CORPUSCULAR VOLUME 91 fl (80-97); MONOCYTES % (AUTO) 4.3 % (3-13); PLATELET COUNT 157 10^3/uL (150-450); RED BLOOD COUNT 4.56 10^6/uL (4.35-5.55); RED CELL DISTRIBUTION WIDTH 14.8 % (11.5-14.0); SEGMENTED NEUTROPHILS % (AUTO) 77.1 % (42-78); TOTAL CELLS COUNTED % (AUTO) 100 %; WHITE BLOOD COUNT 7.4 10^3/uL (4.0-10.5)
--- NOTE | 2019-08-18 17:06 | RADIOLOGY REPORT (SQ) ---
EXAM DESCRIPTION: ACUTE ABDOMEN SERIES IMAGES COMPLETED DATE/TIME: 08/18/2019 4:35 pm REASON FOR STUDY: pain COMPARISON: None. NUMBER OF VIEWS: One view. TECHNIQUE: Supine radiographic image of the abdomen acquired. LIMITATIONS: None. FINDINGS: BOWEL GAS PATTERN: Non-obstructive bowel gas pattern. No dilated loops. CALCIFICATIONS: No suspicious calcifications. SOFT TISSUES: No gross mass or suggestion of organomegaly. HARDWARE: None in the abdomen. BONES: No acute fracture. No worrisome bone lesions. OTHER: No other significant finding. IMPRESSION: NO RADIOGRAPHIC EVIDENCE FOR ACUTE ABDOMINAL DISEASE. TECHNICAL DOCUMENTATION: JOB ID: [id number] [place]-[id number] 2010 [employer]- All Rights Reserved Reading location - IP/workstation name: [facility]
[2019-08-18 17:50] VITALS: BP 164/68
== END 2019-08-18 17:48 | disposition home or self-care (01) ==
LOC: ER 15:11
DX: R11.2 Nausea with vomiting, unspecified (principal); I10 Essential (primary) hypertension
CPT/HCPCS: 36415; 74022; 85025; 99284